=== PATIENT | female | born 1975 | race Caucasian/White ===

== ENCOUNTER 2018-07-01 23:59 | Emergency (ER) | payer BC, MEDICARE ==
[~2018-07-01] VITALS: Ht 170.1 cm; Wt 76.2 kg
--- NOTE | ~2018-07-01 | EKG ---
[place], [place] ELECTROCARDIOGRAM REPORT NAME: CHAO MARTIN UNIT #: [id number] ROOM: DOCTOR: EPIPHANY DRAFT REPORT BIRTHDATE: [birth year] [facility] Test Date: 2018-07-02 Test Time: 00:05:13 Pat Name: CHAO MARTIN Department: ER Room: 16 Gender: F Assistant Center Director: : 1975 Requested By: PALOMA HERNANDEZ Order Number: [id number] Reading MD: Munir Bundy MD Measurements Intervals [place] Rate: 148 P: 53 TX: 105 QRS: 30 QRSD: 86 T: 87 QT: 287 QTc: 451 Interpretive Statements Sinus tachycardia Probable left atrial enlargement LVH with secondary repolarization abnormality Baseline wander in lead(s) V3,V5,V6 Electronically Signed On 07-03-2018 9:16:04 PDT by Munir Bundy MD CM:EKGRPT:ELECTROCARDIOGRAM REPORT 0005 [id number] PALOMA HERNANDEZ MD EPIPHANY DRAFT REPORT PALOMA HERNANDEZ MD
[~2018-07-01 23:59] MED LIST: ATIVAN0.5 MG PO; BACTRIM DS 8001 TA1 PO; CEFUROXIME AXE250 MG PO; MOTRIN600 MG PO; Motrin,Rufen800 MG PO; NAPROSYN500 MG PO; PANTOPRAZOLE SO40 MG PO; PYRIDIUM200 M1 PO; SEPTRA DS 800 M1 TAB PO; TYLENOL W/CODEI1 TA2 PO; ZANTAC 300300 MG PO; ZOFRAN ODT4 MG SL
[2018-07-02 00:31] LABS: BASO # 0.1 10*3/uL (0.0-0.1); BASO % 0.6 % (0.0-1.0); EOS # 0.1 10*3/uL (0.0-0.4); EOS % 1.5 % (1.0-4.0); HEMOGLOBIN 12.5 g/dl (12.0-16.0); LYMPH # 4.2 10*3/uL (1.3-4.4); LYMPH % 44.8 % (27.0-41.0); MEAN CORPUSCULAR HGB CONC 32.9 g/dl (33.0-37.0); MEAN PLATELET VOLUME 9.3 fl (9.6-12.3); MONO # 0.8 10*3/uL (0.1-1.0); MONO % 8.3 % (3.0-9.0); NEUT # 4.1 10*3/uL (2.3-7.9); NEUT % 44.4 % (47.0-73.0); PLATELET COUNT AUTOMATED 297 10*3/uL (130-400); RED BLOOD COUNT 4.47 10*6/uL (4.10-5.10); RED CELL DISTRI WIDTH 14.6 % (0-14.5); WHITE BLOOD COUNT 9.3 10*3/uL (4.8-10.8)
[2018-07-02 00:41] LABS: ACT PARTIAL THROMBO TIME 24.2 SECONDS (20.8-31.5); INTERNATIONAL NORM RATIO 0.9 (2.0-3.5)
[2018-07-02 00:48] LABS: ALBUMIN 3.9 gm/dl (3.1-4.5); ALKALINE PHOSPHATASE 109 U/L (45-117); BUN 12 mg/dl (7-24); CHLORIDE 103 mmol/L (98-107); CREATININE 0.87 mg/dL (0.55-1.02); POTASSIUM 3.4 mmol/L (3.5-5.1); SGOT/AST 20 IU/L (3-35); SGPT/ALT 30 U/L (12-78); SODIUM 139 mmol/L (136-145); TOTAL PROTEIN 7.9 gm/dL (6.4-8.2)
[2018-07-02 00:50] LABS: TROPONIN I < 0.015 ng/ml (<0.045)
[2018-07-02 01:02] VITALS: BP 149/99
== END 2018-07-02 01:13 | disposition home or self-care (01) ==
LOC: ED 23:59
PROVIDERS: Emergency Medicine Emergency Medical Services
DX: F41.9 Anxiety disorder, unspecified (principal); R07.9 Chest pain, unspecified; F17.200 Nicotine dependence, unspecified, uncomplicated; Z98.51 Tubal ligation status

== ENCOUNTER 2018-07-09 17:47 | Emergency (ER) | payer BC, MEDICARE ==
[~2018-07-09] VITALS: Ht 170.1 cm; Wt 76.5 kg
--- NOTE | ~2018-07-09 | EKG ---
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
[2018-07-09 18:08] LABS: BASO % 0.5 % (0.0-1.0); EOS # 0.1 10*3/uL (0.0-0.4); HEMATOCRIT 37.7 % (37.0-47.0); HEMOGLOBIN 12.3 g/dl (12.0-16.0); LYMPH # 1.7 10*3/uL (1.3-4.4); MEAN CELL VOLUME 85.1 fl (81.0-99.0); MEAN CORPUSCULAR HGB 27.8 pg (27.0-31.0); MEAN CORPUSCULAR HGB CONC 32.6 g/dl (33.0-37.0); MEAN PLATELET VOLUME 9.3 fl (9.6-12.3); MONO # 0.6 10*3/uL (0.1-1.0); MONO % 9.8 % (3.0-9.0); NEUT # 3.7 10*3/uL (2.3-7.9); NEUT % 60.2 % (47.0-73.0); PLATELET COUNT AUTOMATED 316 10*3/uL (130-400); RED BLOOD COUNT 4.43 10*6/uL (4.10-5.10); RED CELL DISTRI WIDTH 14.3 % (0-14.5); WHITE BLOOD COUNT 6.1 10*3/uL (4.8-10.8)
[2018-07-09 18:18] LABS: ACT PARTIAL THROMBO TIME 24.7 SECONDS (20.8-31.5)
[2018-07-09 18:22] LABS: BILIRUBIN NEGATIVE (NEGATIVE); BLOOD NEGATIVE (NEGATIVE); CLARITY CLEAR (CLEAR); COLOR YELLOW (YELLOW); GLUCOSE NEGATIVE (NEGATIVE); KETONE TRACE (NEGATIVE); LEUKO ESTERASE NEGATIVE (NEGATIVE); NITRITE NEGATIVE (NEGATIVE); SPECIFIC GRAVITY 1.015 (1.005-1.030); UROBILINOGEN 0.2 E.U./dl (0.2-1.0)
[2018-07-09 18:27] LABS: ALBUMIN 3.3 gm/dl (3.1-4.5); ALKALINE PHOSPHATASE 86 U/L (45-117); BUN 17 mg/dl (7-24); CHLORIDE 105 mmol/L (98-107); CREATININE 0.82 mg/dL (0.55-1.02); LIPASE 115 U/L (73-393); POTASSIUM 3.7 mmol/L (3.5-5.1); SGOT/AST 19 IU/L (3-35); SGPT/ALT 31 U/L (12-78); SODIUM 141 mmol/L (136-145); TOTAL PROTEIN 7.2 gm/dL (6.4-8.2)
[2018-07-09 18:30] LABS: URINE AMPHETAMINES < 1000 (1000ng/ml); URINE BARBITURATES < 200 (200ng/ml); URINE BENZODIAZEPINES < 200 (200ng/ml); URINE CANNABINOIDS (THC) < 50 (50ng/ml); URINE COCAINE < 300 (300ng/ml); URINE METHADONE < 300 (300ng/ml); URINE OPIATES < 300 (300ng/ml)
[2018-07-09 18:35] LABS: ETHYL ALCOHOL < 3.0 mg/dl (<3)
[2018-07-09 18:35] LABS: URINE PHENCYCLIDINE < 25 (25ng/ml)
[2018-07-09 20:38] VITALS: BP 121/77
== END 2018-07-09 20:34 | disposition short-term general hospital (02) ==
LOC: ED 17:47
PROVIDERS: Emergency Medicine
DX: I21.4 Non-ST elevation (NSTEMI) myocardial infarction (principal); R94.31 Abnormal electrocardiogram [ECG] [EKG]; R07.9 Chest pain, unspecified; F41.9 Anxiety disorder, unspecified; F10.10 Alcohol abuse, uncomplicated

== ENCOUNTER 2018-08-28 01:44 | Emergency (ER) | payer BC, MEDICARE ==
[~2018-08-28] VITALS: Ht 170.1 cm; Wt 73.5 kg
[2018-08-28 01:46] VITALS: BP 117/66
[2018-08-28] MEDS ORDERED: BRILINTA90 M1 PO (01:51)
[2018-08-28] MEDS ORDERED: TOPROL XL25 MG PO (01:52)
[2018-08-28] MEDS ORDERED: ASPIRIN CHEWABL81 MG PO (01:52)
[2018-08-28] MEDS ORDERED: SERTRALINE HYDR50 MG PO (01:52)
[2018-08-28] MEDS ORDERED: ZESTRIL,PRINIVIL5 MG PO (01:52)
[2018-08-28] MEDS ORDERED: HYDROXYZINE HCL25 MG PO (01:53)
[2018-08-28 02:20] LABS: BASO % 0.2 % (0.0-1.0); EOS # 0.1 10*3/uL (0.0-0.4); EOS % 1.3 % (1.0-4.0); LYMPH # 2.5 10*3/uL (1.3-4.4); MEAN CELL VOLUME 86.6 fl (81.0-99.0); MEAN CORPUSCULAR HGB 27.9 pg (27.0-31.0); MEAN CORPUSCULAR HGB CONC 32.3 g/dl (33.0-37.0); MEAN PLATELET VOLUME 9.8 fl (9.6-12.3); MONO # 0.7 10*3/uL (0.1-1.0); MONO % 7.9 % (3.0-9.0); NEUT # 5.6 10*3/uL (2.3-7.9); NEUT % 62.4 % (47.0-73.0); PLATELET COUNT AUTOMATED 270 10*3/uL (130-400); RED BLOOD COUNT 3.58 10*6/uL (4.10-5.10); RED CELL DISTRI WIDTH 14.6 % (0-14.5)
[2018-08-28 02:33] LABS: BUN 21 mg/dl (7-24); CHLORIDE 106 mmol/L (98-107); CREATININE 0.97 mg/dL (0.55-1.02); POTASSIUM 3.8 mmol/L (3.5-5.1); SODIUM 138 mmol/L (136-145)
[2018-08-28] MEDS ORDERED: VIBRAMYCIN100 MG PO (03:38)
== END 2018-08-28 04:01 | disposition home or self-care (01) ==
LOC: ED 01:44
PROVIDERS: Emergency Medicine
DX: L73.9 Follicular disorder, unspecified (principal); Z79.899 Other long term (current) drug therapy; Z79.82 Long term (current) use of aspirin; Z95.5 Presence of coronary angioplasty implant and graft; Z98.51 Tubal ligation status

== ENCOUNTER 2018-11-25 14:37 | Emergency (ER) | payer BC, MEDICARE ==
[~2018-11-25] VITALS: Ht 170.1 cm; Wt 73.5 kg
[~2018-11-25 14:37] MED LIST changes: +ASPIRIN CHEWABL81 MG PO; +BRILINTA90 M1 PO; +HYDROXYZINE HCL25 MG PO; +SERTRALINE HYDR50 MG PO; +TOPROL XL25 MG PO; +VIBRAMYCIN100 MG PO; +ZESTRIL,PRINIVIL5 MG PO
[2018-11-25 14:39] VITALS: BP 115/40
== END 2018-11-25 16:36 | disposition home or self-care (01) ==
LOC: ED 14:37
DX: S60.222A Contusion of left hand, initial encounter (principal); Z79.899 Other long term (current) drug therapy; Z79.82 Long term (current) use of aspirin; W23.0XXA Caught, crushed, jammed, or pinched between moving objects, initial encounter; Y93.89 Activity, other specified; Y92.810 Car as the place of occurrence of the external cause; Y99.8 Other external cause status

== ENCOUNTER 2019-04-20 12:06 | Inpatient (IN) | payer BC ==
[~2019-04-20] VITALS: Ht 170.1 cm; Wt 71.4 kg
[2019-04-20] VITALS (10 sets, daily range): BP systolic 113–143; BP diastolic 62–84
--- NOTE | ~2019-04-20 | EKG ---
[place], [place] ELECTROCARDIOGRAM REPORT NAME: CHAO MARTIN UNIT #: [id number] ROOM: 405 DOCTOR: LI DRAFT REPORT BIRTHDATE: [birth year] [facility] Test Date: 2019-04-20 Test Time: 17:41:50 Pat Name: CHAO MARTIN Department: Room: 405 Gender: F Supervisor Estimator And Drafter: Alicia Hsieh : 1975 Requested By: SP ANAYA Order Number: [id number] Reading MD: Nilam Li Measurements Intervals [place] Rate: 84 P: 40 CO: 159 QRS: 17 QRSD: 84 T: 38 QT: 361 QTc: 427 Interpretive Statements Sinus rhythm Abnormal R-wave progression, early transition Compared to ECG 07/09/2018 17:53:42 No significant changes Electronically Signed On 04-21-2019 12:46:00 PDT by Nilam Li CM:EKGRPT:ELECTROCARDIOGRAM REPORT 1741 1246 SP JEFFERSON DRAFT REPORT SP ANAYA MD
--- NOTE | ~2019-04-20 | EKG ---
[place], [place] ELECTROCARDIOGRAM REPORT NAME: CHAO MARTIN UNIT #: [id number] ROOM: 405 DOCTOR: LI DRAFT REPORT BIRTHDATE: [birth year] [facility] Test Date: 2019-04-20 Test Time: 15:24:23 Pat Name: CHAO MARTIN Department: Room: 405 Gender: F Sack Department Supervisor: Alicia Hsieh : 1975 Requested By: SP ANAYA Order Number: [id number] Reading MD: Nilam Li Measurements Intervals [place] Rate: 90 P: 44 IA: 166 QRS: 17 QRSD: 81 T: 34 QT: 357 QTc: 437 Interpretive Statements Sinus rhythm Abnormal R-wave progression, early transition Compared to ECG 07/09/2018 17:53:42 No significant changes Electronically Signed On 04-21-2019 12:43:25 PDT by Nilam Li CM:EKGRPT:ELECTROCARDIOGRAM REPORT 1524 1243 SP JEFFERSON DRAFT REPORT SP ANAYA MD
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
--- NOTE | ~2019-04-20 | EKG ---
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
--- NOTE | ~2019-04-20 | O ---
[place], [place] OPERATIVE NOTE NAME: CHAO MARTIN UNIT #: [id number] ROOM: 405 DOCTOR: NISHA AUGUST MD BIRTHDATE: [birth year] DOS: 04/21/2019 GASTROENDOSCOPIC REPORT HISTORY OF PRESENT ILLNESS: A 43-year-old patient who has presented with chief complaint of not feeling well and was expressing with microcytic anemia and hemoglobin of 6. PROCEDURE: Today's procedure part of investigation is panendoscopy plus biopsy. PREMEDICATION: Propofol. SCOPE: Olympus gastroscope Q10 video. REPORT: After putting the patient in left lateral position and application of lubricant to the scope, the scope was introduced. Thereafter, under direct visualization, advanced through the length of esophagus without difficulty. Gastritis was noticed. No evidence of bleeding in the gastric pouch identified. Duodenal bulb, second and third part within normal limits. Antral biopsy obtained. GI reflexion of the scope reveals cardia to be benign. Air was suctioned out. The patient was extubated, tolerated the procedure well. IMPRESSION: Gastritis, status post biopsy. PLAN AND DISCUSSION: Retrospective further finding shows that the patient is relatively aggressive alcohol consumer and in addition, she has heavy menses for 3 days, chronically per month. In addition, the patient has been on antiplatelet aspirin product in addition to the anticoagulant, Brilinta and combination of all above contributors can lead to iron deficiency anemia. However, this patient requires to have a colonoscopy done as outpatient. This is going to be organized for her. At the present time, we are going to go ahead and feed her. [place], [place] OPERATIVE NOTE NAME: CHAO MARTIN UNIT #: [id number] ROOM: 405 DOCTOR: NISHA AUGUST MD BIRTHDATE: [birth year] NISHA AUGUST MD CM:OPRECORD:OPERATIVE NOTE 1741 1805 NISHA AUGUST MD 05/03/19 0752 interface
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
[2019-04-20 12:40] LABS: HEMATOCRIT 24.5 % (37.0-47.0); MEAN CELL VOLUME 63.8 fl (81.0-99.0); MEAN CORPUSCULAR HGB CONC 28.2 g/dl (33.0-37.0); MEAN PLATELET VOLUME 9.6 fl (9.6-12.3); PLATELET COUNT AUTOMATED 423 10*3/uL (130-400); RED BLOOD COUNT 3.84 10*6/uL (4.10-5.10); RED CELL DISTRI WIDTH 20.6 % (0-14.5); WHITE BLOOD COUNT 8.6 10*3/uL (4.8-10.8)
[2019-04-20 12:50] LABS: HEMOGLOBIN 6.9 g/dl (12.0-16.0)
[2019-04-20 12:56] LABS: ALBUMIN 3.6 gm/dl (3.1-4.5); ALKALINE PHOSPHATASE 68 U/L (45-117); BUN 10 mg/dl (7-24); CHLORIDE 111 mmol/L (98-107); CREATININE 0.79 mg/dL (0.55-1.02); POTASSIUM 3.9 mmol/L (3.5-5.1); SGOT/AST 10 IU/L (3-35); SGPT/ALT 17 U/L (12-78); SODIUM 142 mmol/L (136-145); TOTAL PROTEIN 7.5 gm/dL (6.4-8.2)
[2019-04-20 12:58] LABS: ACT PARTIAL THROMBO TIME 20.6 SECONDS (20.0-32.1); INTERNATIONAL NORM RATIO 0.9 (2.0-3.5)
[2019-04-20 12:59] LABS: TROPONIN I < 0.015 ng/ml (<0.045)
[2019-04-20 13:00] LABS: B-hCG (QUALITATIVE) NEGATIVE (NEGATIVE)
[2019-04-20 13:04] LABS: ETHYL ALCOHOL < 3.0 mg/dl (<3)
[2019-04-20 13:18] LABS: BASOPHILS 1 % (0-1); TOTAL CELLS COUNTED 100 #CELLS
[2019-04-20 13:19] LABS: OVALOCYTES FEW
[2019-04-20 13:20] LABS: PLATELET SUFFICIENCY NORMAL (NORMAL)
[2019-04-20 13:20] LABS: IRON 10 ug/dL (50-170); TOTAL IRON BINDING CAPACITY 435 ug/dl (250-450)
[2019-04-20 13:50] LABS: BILIRUBIN NEGATIVE (NEGATIVE); BLOOD TRACE-LYSED (NEGATIVE); CLARITY CLEAR (CLEAR); COLOR YELLOW (YELLOW); GLUCOSE NEGATIVE (NEGATIVE); KETONE NEGATIVE (NEGATIVE); LEUKO ESTERASE 2+ (NEGATIVE); NITRITE NEGATIVE (NEGATIVE); PH 6.5 (5.0-9.0); SPECIFIC GRAVITY 1.015 (1.005-1.030); UROBILINOGEN 0.2 E.U./dl (0.2-1.0)
[2019-04-20 13:58] LABS: URINE AMPHETAMINES < 1000 (1000ng/ml); URINE BARBITURATES < 200 (200ng/ml); URINE BENZODIAZEPINES < 200 (200ng/ml); URINE CANNABINOIDS (THC) < 50 (50ng/ml); URINE COCAINE < 300 (300ng/ml); URINE METHADONE < 300 (300ng/ml); URINE OPIATES < 300 (300ng/ml)
[2019-04-20 14:00] LABS: BACTERIA TRACE; WBC 21-30 wbc/hpf (0-5)
[2019-04-20 14:03] LABS: URINE PHENCYCLIDINE < 25 (25ng/ml)
[2019-04-20] MEDS ORDERED: COREG6.25 MG PO (14:31)
[2019-04-20] MEDS ORDERED: PROTONIX40 MG PO (14:32)
[2019-04-20] MEDS ORDERED: NITROSTAT0.4 MG SL (14:33)
[2019-04-21] VITALS (13 sets, daily range): BP systolic 91–127; BP diastolic 45–76
[2019-04-21 06:27] LABS: BASO % 0.3 % (0.0-1.0); EOS # 0.1 10*3/uL (0.0-0.4); EOS % 0.8 % (1.0-4.0); HEMATOCRIT 25.3 % (37.0-47.0); HEMOGLOBIN 7.4 g/dl (12.0-16.0); LYMPH % 18.4 % (27.0-41.0); MEAN CELL VOLUME 66.4 fl (81.0-99.0); MEAN CORPUSCULAR HGB 19.4 pg (27.0-31.0); MEAN CORPUSCULAR HGB CONC 29.2 g/dl (33.0-37.0); MEAN PLATELET VOLUME 9.8 fl (9.6-12.3); MONO # 0.7 10*3/uL (0.1-1.0); NEUT # 8.1 10*3/uL (2.3-7.9); NEUT % 74.1 % (47.0-73.0); PLATELET COUNT AUTOMATED 380 10*3/uL (130-400); RED BLOOD COUNT 3.81 10*6/uL (4.10-5.10); RED CELL DISTRI WIDTH 23.6 % (0-14.5)
[2019-04-21 06:52] LABS: BUN 15 mg/dl (7-24); CHLORIDE 107 mmol/L (98-107); CHOLESTEROL 126 mg/dL (<200); CREATININE 0.73 mg/dL (0.55-1.02); HDL CHOLESTEROL 42 mg/dl (40-60); LDL CHOLESTEROL 59 mg/dL (9-159); POTASSIUM 3.5 mmol/L (3.5-5.1); SODIUM 137 mmol/L (136-145); TRIGLYCERIDES 124 mg/dl (<150); VLDL CHOLESTEROL 25 mg/dL (6-40)
[2019-04-21 07:00] LABS: INTERNATIONAL NORM RATIO 0.9 (2.0-3.5)
[2019-04-21 07:12] LABS: VITAMIN D, 25-HYDROXY 19.9 ng/mL (30-100)
[2019-04-21] MEDS ORDERED: FERRLECIT62.5 MG/1 IV (10:52)
[2019-04-22] VITALS: BP 94/50
[2019-04-22 08:00] VITALS: BP 106/60
== END 2019-04-22 10:39 | disposition home or self-care (01) | DRG 761 ==
LOC: ED 12:06 → 4E 13:47 → EDHOLD 13:47 → 4E 13:48
PROVIDERS: Emergency Medicine; Internal Medicine; ADMIT Internal Medicine
PROC: 30233N1 Transfusion of Nonautologous Red Blood Cells into Peripheral Vein, Percutaneous Approach (ICD-10-PCS; principal; 2019-04-20)
PROC: 0DB68ZX Excision of Stomach, Via Natural or Artificial Opening Endoscopic, Diagnostic (ICD-10-PCS; 2019-04-21)
DX: N92.0 Excessive and frequent menstruation with regular cycle (principal); D50.9 Iron deficiency anemia, unspecified; D47.3 Essential (hemorrhagic) thrombocythemia; R00.0 Tachycardia, unspecified; I10 Essential (primary) hypertension; F41.9 Anxiety disorder, unspecified; I25.10 Atherosclerotic heart disease of native coronary artery without angina pectoris; K29.70 Gastritis, unspecified, without bleeding; Z87.440 Personal history of urinary (tract) infections; Z87.828 Personal history of other (healed) physical injury and trauma; Z95.5 Presence of coronary angioplasty implant and graft; Z98.51 Tubal ligation status; I25.2 Old myocardial infarction; Z79.82 Long term (current) use of aspirin; Z79.899 Other long term (current) drug therapy; Z83.79 Family history of other diseases of the digestive system; Z82.49 Family history of ischemic heart disease and other diseases of the circulatory system

== ENCOUNTER 2019-09-01 02:55 | Emergency (ER) | payer BC ==
[~2019-09-01] VITALS: Ht 175.2 cm; Wt 72.6 kg
[~2019-09-01 02:55] MED LIST changes: +COREG6.25 MG PO; +FERRLECIT62.5 MG/1 IV; +NITROSTAT0.4 MG SL; +PROTONIX40 MG PO
[2019-09-01 02:57] VITALS: BP 132/99
[2019-09-01] MEDS ORDERED: CEPHALEXIN500 M1 PO (05:21)
== END 2019-09-01 05:25 | disposition home or self-care (01) ==
LOC: ED 02:55
DX: S00.81XA Abrasion of other part of head, initial encounter (principal); I25.10 Atherosclerotic heart disease of native coronary artery without angina pectoris; I10 Essential (primary) hypertension; I25.2 Old myocardial infarction; Z79.899 Other long term (current) drug therapy; W19.XXXA Unspecified fall, initial encounter; Y93.89 Activity, other specified; Y92.89 Other specified places as the place of occurrence of the external cause; Y99.8 Other external cause status

== ENCOUNTER → 2019-11-13 | Outpatient (CLI) | payer BC, MEDICARE ==
[~2019-11-13] MED LIST changes: +CEPHALEXIN500 M1 PO
[2019-11-13 13:42] LABS: HEMATOCRIT 37.7 % (37.0-47.0); HEMOGLOBIN 12.1 g/dl (12.0-16.0); MEAN CELL VOLUME 89.1 fl (81.0-99.0); MEAN CORPUSCULAR HGB 28.6 pg (27.0-31.0); MEAN CORPUSCULAR HGB CONC 32.1 g/dl (33.0-37.0); MEAN PLATELET VOLUME 9.3 fl (9.6-12.3); RED BLOOD COUNT 4.23 10*6/uL (4.10-5.10); RED CELL DISTRI WIDTH 13.4 % (0-14.5); WHITE BLOOD COUNT 5.8 10*3/uL (4.8-10.8)
[2019-11-13 14:11] LABS: ALBUMIN 3.6 gm/dl (3.1-4.5); ALKALINE PHOSPHATASE 73 U/L (45-117); BUN 13 mg/dl (7-24); CHLORIDE 105 mmol/L (98-107); CHOLESTEROL 158 mg/dL (<200); CREATININE 0.81 mg/dL (0.55-1.02); HDL CHOLESTEROL 72 mg/dl (40-60); LDL CHOLESTEROL 67 mg/dL (9-159); POTASSIUM 4.1 mmol/L (3.5-5.1); SGOT/AST 23 IU/L (3-35); SGPT/ALT 41 U/L (12-78); SODIUM 137 mmol/L (136-145); TOTAL PROTEIN 7.2 gm/dL (6.4-8.2); TRIGLYCERIDES 95 mg/dl (<150); VLDL CHOLESTEROL 19 mg/dL (6-40)
[2019-11-13 14:54] LABS: VITAMIN D, 25-HYDROXY 10.8 ng/mL (30-100)
== END ==
LOC: LAB 12:57 → EDSTATUS 12:59 → LAB 12:59
PROVIDERS: Family Medicine
DX: I10 Essential (primary) hypertension (principal); E78.00 Pure hypercholesterolemia, unspecified; E53.8 Deficiency of other specified B group vitamins; Z79.899 Other long term (current) drug therapy

== ENCOUNTER → 2019-12-25 | Outpatient (CLI) | payer BC, MEDICARE | END | disposition home or self-care (01) | LOC: CARD 12-13 00:58 | DX: I34.1 Nonrheumatic mitral (valve) prolapse (principal) ==

== ENCOUNTER → 2020-04-16 | Outpatient (CLI) | payer BC, MEDICARE | END | disposition home or self-care (01) | LOC: RAD 15:01 | DX: R06.02 Shortness of breath (principal); R05 Cough ==

== ENCOUNTER → 2020-07-26 | Outpatient (CLI) | payer BC, MEDICARE ==
[2020-07-26 10:06] LABS: HEMATOCRIT 37.1 % (37.0-47.0); MEAN CELL VOLUME 87.1 fl (81.0-99.0); MEAN PLATELET VOLUME 9.4 fl (9.6-12.3); RED BLOOD COUNT 4.26 10*6/uL (4.10-5.10); RED CELL DISTRI WIDTH 14.2 % (0-14.5); WHITE BLOOD COUNT 6.6 10*3/uL (4.8-10.8)
[2020-07-26 10:37] LABS: ALBUMIN 3.5 gm/dl (3.1-4.5); BUN 12 mg/dl (7-24); CHLORIDE 107 mmol/L (98-107); POTASSIUM 3.9 mmol/L (3.5-5.1); SODIUM 140 mmol/L (136-145)
[2020-07-26 10:40] LABS: ALKALINE PHOSPHATASE 80 U/L (45-117); CHOLESTEROL 116 mg/dL (<200); CREATININE 0.73 mg/dL (0.55-1.02); HDL CHOLESTEROL 65 mg/dl (40-60); LDL CHOLESTEROL 36 mg/dL (9-159); SGOT/AST 15 IU/L (3-35); SGPT/ALT 24 U/L (12-78); TOTAL PROTEIN 7.4 gm/dL (6.4-8.2); TRIGLYCERIDES 73 mg/dl (<150); VLDL CHOLESTEROL 15 mg/dL (6-40)
[2020-07-27 06:08] LABS: HEP B CORE AB, IGM Negative (Negative); HEPATITIS B SURFACE AG Negative (Negative); HEPATITIS C VIRUS ANTIBODY <0.1 s/co (0.0-0.9)
== END | disposition home or self-care (01) ==
LOC: LAB 09:45
PROVIDERS: ATTEND Nurse Practitioner Family
DX: E55.9 Vitamin D deficiency, unspecified (principal); R53.83 Other fatigue; F10.10 Alcohol abuse, uncomplicated

== ENCOUNTER → 2020-08-16 | Outpatient (CLI) | payer BC, MEDICARE | END | disposition home or self-care (01) | LOC: COVID19 15:40 | PROVIDERS: ATTEND Family Medicine | DX: Z20.828 Contact with and (suspected) exposure to other viral communicable diseases (principal) ==

== ENCOUNTER → 2020-12-02 | Outpatient (CLI) | payer BC, MEDICARE | END | disposition home or self-care (01) | LOC: RAD 17:47 | PROVIDERS: ATTEND Nurse Practitioner Family | DX: K59.00 Constipation, unspecified (principal) ==

== ENCOUNTER → 2020-12-05 | Outpatient (CLI) | payer BC, MEDICARE ==
[2020-12-05 11:10] LABS: HEMATOCRIT 39.7 % (37.0-47.0); MEAN CELL VOLUME 85.9 fl (81.0-99.0); MEAN CORPUSCULAR HGB 27.3 pg (27.0-31.0); MEAN CORPUSCULAR HGB CONC 31.7 g/dl (33.0-37.0); MEAN PLATELET VOLUME 9.6 fl (9.6-12.3); RED BLOOD COUNT 4.62 10*6/uL (4.10-5.10); RED CELL DISTRI WIDTH 14.2 % (0-14.5); WHITE BLOOD COUNT 6.2 10*3/uL (4.8-10.8)
[2020-12-05 11:41] LABS: ALBUMIN 3.5 gm/dl (3.1-4.5); BUN 14 mg/dl (7-24); CHLORIDE 104 mmol/L (98-107); CHOLESTEROL 136 mg/dL (<200); GAMMA GLUTAMYL TRANSPEPTIDASE 18 U/L (5-55); POTASSIUM 3.9 mmol/L (3.5-5.1); SGOT/AST 13 IU/L (3-35); SGPT/ALT 27 U/L (12-78); SODIUM 137 mmol/L (136-145); TOTAL PROTEIN 7.8 gm/dL (6.4-8.2); TRIGLYCERIDES 142 mg/dl (<150); VLDL CHOLESTEROL 28 mg/dL (6-40)
[2020-12-05 11:42] LABS: ALKALINE PHOSPHATASE 93 U/L (45-117); HDL CHOLESTEROL 51 mg/dl (40-60); LDL CHOLESTEROL 57 mg/dL (9-159); VITAMIN D, 25-HYDROXY 39.9 ng/mL (30-100)
== END | disposition home or self-care (01) ==
LOC: LAB 10:56
PROVIDERS: ATTEND Family Medicine
DX: I10 Essential (primary) hypertension (principal); E55.9 Vitamin D deficiency, unspecified; K59.00 Constipation, unspecified; F41.1 Generalized anxiety disorder; E74.00 Glycogen storage disease, unspecified

== ENCOUNTER 2022-11-21 17:36 | Emergency (ER) | payer MEDICARE ==
[~2022-11-21] VITALS: Ht 170.1 cm; Wt 80.3 kg
[2022-11-21 18:25] LABS: BASO # 0.1 10*3/uL (0.0-0.1); BASO % 0.8 % (0.0-1.0); EOS # 0.1 10*3/uL (0.0-0.4); HEMATOCRIT 34.4 % (37.0-47.0); LYMPH # 2.2 10*3/uL (1.3-4.4); LYMPH % 34.2 % (27.0-41.0); MEAN CELL VOLUME 74.3 fl (81.0-99.0); MEAN CORPUSCULAR HGB 23.5 pg (27.0-31.0); MEAN CORPUSCULAR HGB CONC 31.7 g/dl (33.0-37.0); MEAN PLATELET VOLUME 9.1 fl (9.6-12.3); MONO # 0.4 10*3/uL (0.1-1.0); MONO % 6.8 % (3.0-9.0); NEUT # 3.6 10*3/uL (2.3-7.9); NEUT % 56.9 % (47.0-73.0); PLATELET COUNT AUTOMATED 447 10*3/uL (130-400); RED BLOOD COUNT 4.63 10*6/uL (4.10-5.10); RED CELL DISTRI WIDTH 18.6 % (0-14.5); WHITE BLOOD COUNT 6.3 10*3/uL (4.8-10.8)
[2022-11-21 18:58] LABS: ALKALINE PHOSPHATASE 97 U/L (46-116); BUN 9 mg/dl (9-23); CHLORIDE 104 mmol/L (98-107); POTASSIUM 3.2 mmol/L (3.4-5.1); SGPT/ALT 29 U/L (10-49); TOTAL PROTEIN 7.6 gm/dL (6.0-8.0)
[2022-11-21 19:02] LABS: BILIRUBIN Negative (Negative); BLOOD 3+ (Negative); CLARITY Clear (Clear); COLOR Yellow (Yellow); GLUCOSE Negative (Negative); KETONE Negative (Negative); LEUKO ESTERASE Negative (Negative); NITRITE Negative (Negative); PH 5.5 (4.5-8.0); SPECIFIC GRAVITY 1.015 (1.001-1.030)
[2022-11-21 19:15] LABS: URINE AMPHETAMINES Negative (1000ng/ml); URINE BARBITURATES Negative (200ng/ml); URINE BENZODIAZEPINES Negative (200ng/ml); URINE CANNABINOIDS (THC) Negative (50ng/ml); URINE COCAINE Negative (300ng/ml); URINE METHADONE Negative (300ng/ml); URINE OPIATES Negative (300ng/ml); URINE PHENCYCLIDINE Negative (25ng/ml)
[2022-11-21 19:18] LABS: BACTERIA 1+; MUCOUS 1+; RBC TNTC rbc/hpf (0-2)
[2022-11-21 20:07] VITALS: BP 119/73
== END 2022-11-21 21:32 | disposition home or self-care (01) ==
LOC: ED 17:36
PROVIDERS: Internal Medicine
DX: F10.129 Alcohol abuse with intoxication, unspecified (principal); E87.6 Hypokalemia; D50.9 Iron deficiency anemia, unspecified; Z98.51 Tubal ligation status; Z98.890 Other specified postprocedural states; Z79.899 Other long term (current) drug therapy

== ENCOUNTER → 2022-12-28 | Outpatient (CLI) | payer OTHER, MEDICARE ==
[2022-12-28 13:41] LABS: MEAN CELL VOLUME 77.6 fl (81.0-99.0); MEAN CORPUSCULAR HGB 23.3 pg (27.0-31.0); MEAN PLATELET VOLUME 9.1 fl (9.6-12.3); RED BLOOD COUNT 4.25 10*6/uL (4.10-5.10); RED CELL DISTRI WIDTH 20.4 % (0-14.5); WHITE BLOOD COUNT 11.4 10*3/uL (4.8-10.8)
[2022-12-28 14:27] LABS: ALKALINE PHOSPHATASE 92 U/L (46-116); BUN 7 mg/dl (9-23); CHLORIDE 102 mmol/L (98-107); CHOLESTEROL 122 mg/dL (<200); FREE T4 1.03 ng/dl (0.89-1.76); GAMMA GLUTAMYL TRANSPEPTIDASE 36 U/L (0-73); LDL CHOLESTEROL 41 mg/dL (9-159); POTASSIUM 4.1 mmol/L (3.4-5.1); SGPT/ALT 13 U/L (10-49); THYROID STIM HORMONE (HS) 1.376 uIU/ml (0.550-4.780); TOTAL PROTEIN 7.1 gm/dL (6.0-8.0); TRIGLYCERIDES 111 mg/dl (<150)
[2022-12-28 14:28] LABS: VITAMIN D, 25-HYDROXY 53.3 ng/mL (30-100)
== END ==
LOC: LAB 12:57
PROVIDERS: ATTEND Family Medicine
DX: I25.10 Atherosclerotic heart disease of native coronary artery without angina pectoris (principal); I10 Essential (primary) hypertension; E74.00 Glycogen storage disease, unspecified; F41.1 Generalized anxiety disorder; R07.9 Chest pain, unspecified; R06.02 Shortness of breath

== ENCOUNTER 2023-04-11 09:34 | Emergency (ER) | payer MEDICARE, BC ==
[~2023-04-11] VITALS: Ht 170.1 cm; Wt 74.4 kg
[2023-04-11 09:52] VITALS: BP 147/96
[2023-04-11] MEDS ORDERED: ATORVASTATIN CA40 M1 PO (09:53)
[2023-04-11] MEDS ORDERED: ASPIRIN81 M1 PO (09:54)
[2023-04-11 10:10] LABS: BILIRUBIN Negative (Negative); BLOOD 1+ (Negative); CLARITY Clear (Clear); COLOR Yellow (Yellow); GLUCOSE Negative (Negative); KETONE Negative (Negative); LEUKO ESTERASE 3+ (Negative); NITRITE Negative (Negative); PH 6.5 (4.5-8.0); SPECIFIC GRAVITY <= 1.005 (1.001-1.030); UROBILINOGEN 0.2 E.U./dl (0.0-1.0)
[2023-04-11 10:22] LABS: BACTERIA 1+; WBC 51-100 wbc/hpf (0-5)
[2023-04-11 10:26] LABS: BASO % 0.5 % (0.0-1.0); EOS # 0.2 10*3/uL (0.0-0.4); EOS % 1.9 % (1.0-4.0); HEMATOCRIT 30.4 % (37.0-47.0); LYMPH # 1.4 10*3/uL (1.3-4.4); LYMPH % 16.4 % (27.0-41.0); MEAN CELL VOLUME 77.4 fl (81.0-99.0); MEAN CORPUSCULAR HGB 23.7 pg (27.0-31.0); MEAN CORPUSCULAR HGB CONC 30.6 g/dl (33.0-37.0); MEAN PLATELET VOLUME 9.4 fl (9.6-12.3); MONO # 0.7 10*3/uL (0.1-1.0); MONO % 7.7 % (3.0-9.0); NEUT # 6.3 10*3/uL (2.3-7.9); NEUT % 73.2 % (47.0-73.0); PLATELET COUNT AUTOMATED 328 10*3/uL (130-400); RED BLOOD COUNT 3.93 10*6/uL (4.10-5.10); RED CELL DISTRI WIDTH 19.1 % (0-14.5); WHITE BLOOD COUNT 8.6 10*3/uL (4.8-10.8)
[2023-04-11 10:48] LABS: ALKALINE PHOSPHATASE 83 U/L (46-116); BUN 9 mg/dl (9-23); CHLORIDE 107 mmol/L (98-107); LIPASE 38 U/L (12-53); POTASSIUM 3.4 mmol/L (3.4-5.1); SGPT/ALT 16 U/L (10-49); TOTAL PROTEIN 6.7 gm/dL (6.0-8.0)
[2023-04-11] MEDS ORDERED: CIPRO500 MG PO (11:04)
== END 2023-04-11 11:17 | disposition home or self-care (01) ==
LOC: ED 09:34
PROVIDERS: Internal Medicine
DX: N39.0 Urinary tract infection, site not specified (principal); F41.9 Anxiety disorder, unspecified; D64.9 Anemia, unspecified; Z98.51 Tubal ligation status; Z98.890 Other specified postprocedural states

== ENCOUNTER → 2023-05-20 | Outpatient (CLI) | payer MEDICARE, BC ==
[~2023-05-20] MED LIST changes: +ASPIRIN81 M1 PO; +ATORVASTATIN CA40 M1 PO; +CIPRO500 MG PO
[2023-05-20 14:12] LABS: HEMATOCRIT 33.6 % (37.0-47.0); MEAN CORPUSCULAR HGB 22.5 pg (27.0-31.0); MEAN CORPUSCULAR HGB CONC 30.1 g/dl (33.0-37.0); MEAN PLATELET VOLUME 9.3 fl (9.6-12.3); RED BLOOD COUNT 4.48 10*6/uL (4.10-5.10); RED CELL DISTRI WIDTH 19.4 % (0-14.5); WHITE BLOOD COUNT 9.7 10*3/uL (4.8-10.8)
[2023-05-20 14:36] LABS: ALKALINE PHOSPHATASE 93 U/L (46-116); BUN 11 mg/dl (9-23); CHLORIDE 102 mmol/L (98-107); POTASSIUM 3.7 mmol/L (3.4-5.1); SGPT/ALT 16 U/L (10-49); TOTAL PROTEIN 7.5 gm/dL (6.0-8.0)
== END | disposition home or self-care (01) ==
LOC: LAB 13:39
PROVIDERS: ATTEND Family Medicine
DX: S70.361A Insect bite (nonvenomous), right thigh, initial encounter (principal); L03.115 Cellulitis of right lower limb; W57.XXXA Bitten or stung by nonvenomous insect and other nonvenomous arthropods, initial encounter; Y93.89 Activity, other specified; Y92.89 Other specified places as the place of occurrence of the external cause; Y99.8 Other external cause status

== ENCOUNTER → 2024-01-08 | Outpatient (CLI) | payer BC, MEDICARE ==
[~2024-01-08] MED LIST changes: +VITAMIN D350 MCG PO
[2024-01-08 10:46] LABS: HEMATOCRIT 33.9 % (37.0-47.0); MEAN CELL VOLUME 74.3 fl (81.0-99.0); MEAN CORPUSCULAR HGB 21.7 pg (27.0-31.0); MEAN CORPUSCULAR HGB CONC 29.2 g/dl (33.0-37.0); MEAN PLATELET VOLUME 9.4 fl (9.6-12.3); RED BLOOD COUNT 4.56 10*6/uL (4.10-5.10); RED CELL DISTRI WIDTH 20.2 % (0-14.5); WHITE BLOOD COUNT 5.4 10*3/uL (4.8-10.8)
[2024-01-08 11:11] LABS: ALKALINE PHOSPHATASE 81 U/L (46-116); BUN 14 mg/dl (9-23); CHLORIDE 107 mmol/L (98-107); CHOLESTEROL 156 mg/dL (<200); CPK 67 U/L (34-171); GAMMA GLUTAMYL TRANSPEPTIDASE 38 U/L (0-73); LDL CHOLESTEROL 56 mg/dL (9-159); POTASSIUM 4.1 mmol/L (3.4-5.1); SGPT/ALT 17 U/L (5-49); TOTAL PROTEIN 7.2 gm/dL (6.0-8.0); TRIGLYCERIDES 163 mg/dl (<150)
== END | disposition home or self-care (01) ==
LOC: LAB 10:29
PROVIDERS: ATTEND Family Medicine
DX: I10 Essential (primary) hypertension (principal); E78.00 Pure hypercholesterolemia, unspecified; E55.9 Vitamin D deficiency, unspecified; L30.9 Dermatitis, unspecified; F41.1 Generalized anxiety disorder; E74.00 Glycogen storage disease, unspecified

== ENCOUNTER 2024-05-08 15:15 | Emergency (ER) | payer BC, MEDICARE ==
[~2024-05-08] VITALS: Ht 170.1 cm; Wt 76.2 kg
[2024-05-08 15:21] VITALS: BP 145/89
[2024-05-08] MEDS ORDERED: ATIVAN0.5 MG PO (15:22)
[2024-05-08] MEDS ORDERED: PREDNISONE20 M1 PO (15:49)
[2024-05-08] MEDS ORDERED: Dexamethasone Sodium Phospha 20 MG/5 ML VIAL IM ONE (15:50)
[2024-05-08] MEDS ORDERED: diphenhydrAMINE hydrochloride 50 MG/ML VIAL IM ONE (15:50)
== END 2024-05-08 16:08 | disposition home or self-care (01) ==
LOC: ED 15:15
DX: L25.9 Unspecified contact dermatitis, unspecified cause (principal); R21 Rash and other nonspecific skin eruption; F41.9 Anxiety disorder, unspecified; D64.9 Anemia, unspecified; I25.2 Old myocardial infarction; F10.10 Alcohol abuse, uncomplicated; Z98.890 Other specified postprocedural states; Z98.51 Tubal ligation status; Z95.5 Presence of coronary angioplasty implant and graft

== ENCOUNTER 2024-05-17 04:57 | Emergency (ER) | payer BC, MEDICARE ==
[~2024-05-17] VITALS: Ht 170.1 cm; Wt 65.8 kg
[~2024-05-17 04:57] MED LIST changes: +PREDNISONE20 M1 PO
[2024-05-17 05:08] VITALS: BP 132/80
[2024-05-17 05:23] LABS: BILIRUBIN 1+ (Negative); BLOOD 1+ (Negative); CLARITY Turbid (Clear); COLOR Dark Yellow (Yellow); GLUCOSE Negative (Negative); KETONE Trace (Negative); LEUKO ESTERASE 3+ (Negative); NITRITE Positive (Negative)
[2024-05-17 05:30] LABS: BACTERIA 4+; RBC 16-20 rbc/hpf (0-2); WBC 41-50 wbc/hpf (0-5)
[2024-05-17] MEDS ORDERED: Ciprofloxacin Hydrochloride 500 MG TAB PO ONE (05:40)
[2024-05-17] MEDS ORDERED: CIPRO500 MG PO (05:40)
[2024-05-18] MEDS ORDERED: PREDNISONE20 M1 PO (08:49)
[2024-05-18] MEDS ORDERED: METHOCARBAMOL750 M1 PO (08:49)
== END 2024-05-17 05:43 | disposition home or self-care (01) ==
LOC: ED 04:57
PROVIDERS: Internal Medicine
DX: N39.0 Urinary tract infection, site not specified (principal); F41.9 Anxiety disorder, unspecified; D64.9 Anemia, unspecified; F10.10 Alcohol abuse, uncomplicated; Z98.51 Tubal ligation status; Z98.890 Other specified postprocedural states; Z95.5 Presence of coronary angioplasty implant and graft

== ENCOUNTER 2024-05-18 05:06 | Emergency (ER) | payer BC, MEDICARE ==
[~2024-05-18] VITALS: Ht 170.1 cm; Wt 76.7 kg
[2024-05-18 05:16] VITALS: BP 129/91
[2024-05-18 06:06] LABS: HEMATOCRIT 35.1 % (37.0-47.0); MEAN CORPUSCULAR HGB 23.3 pg (27.0-31.0); MEAN CORPUSCULAR HGB CONC 29.9 g/dl (33.0-37.0); MEAN PLATELET VOLUME 9.2 fl (9.6-12.3); PLATELET COUNT AUTOMATED 417 10*3/uL (130-400); RED CELL DISTRI WIDTH 19.8 % (0-14.5); WHITE BLOOD COUNT 10.8 10*3/uL (4.8-10.8)
[2024-05-18 06:08] LABS: MANUAL DIFF REFLEX YES
[2024-05-18] MEDS ORDERED: Dexamethasone Sodium Phospha 20 MG/5 ML VIAL IV ONE (06:30)
[2024-05-18 06:34] LABS: BUN 12 mg/dl (9-23); CHLORIDE 103 mmol/L (98-107); CPK 49 U/L (34-171); POTASSIUM 4.2 mmol/L (3.4-5.1)
[2024-05-18 06:41] LABS: BASOPHILS 3 % (0-1); PLATELET SUFFICIENCY HIGH (NORMAL); TOTAL CELLS COUNTED 100 #CELLS
[2024-05-18] MEDS ORDERED: Thiamine 200 MG/2 ML VIAL IV ONE (06:50)
[2024-05-18] MEDS ORDERED: SODIUM CHLORIDE 0.9% 1,000 ML IV ONE (06:50)
[2024-05-18] MEDS ORDERED: Ketorolac Tromethamine 30 MG/ML VIAL IV ONE (07:55)
[2024-05-18] MEDS ORDERED: PREDNISONE20 M1 PO (08:49)
[2024-05-18] MEDS ORDERED: METHOCARBAMOL750 M1 PO (08:49)
== END 2024-05-18 09:42 | disposition home or self-care (01) ==
LOC: ED 05:06
PROVIDERS: Internal Medicine
DX: M79.604 Pain in right leg (principal); M79.605 Pain in left leg; F41.9 Anxiety disorder, unspecified; I25.2 Old myocardial infarction; D64.9 Anemia, unspecified; F10.20 Alcohol dependence, uncomplicated; Z98.51 Tubal ligation status; Z98.890 Other specified postprocedural states

== ENCOUNTER 2024-12-04 07:27 | Emergency (ER) | payer MEDICARE ==
[~2024-12-04] VITALS: Ht 170.1 cm; Wt 81.6 kg
[~2024-12-04 07:27] MED LIST changes: +METHOCARBAMOL750 M1 PO
[2024-12-04 07:39] VITALS: BP 133/114
[2024-12-04] MEDS ORDERED: Thiamine 200 MG/2 ML VIAL IV ONE (08:00)
[2024-12-04] MEDS ORDERED: FOLIC ACID 1 MG TAB PO ONE (08:00)
[2024-12-04] MEDS ORDERED: fentaNYL CITRATE 100 MCG/2 ML VIAL IV ONE (08:00)
[2024-12-04] MEDS ORDERED: SODIUM CHLORIDE 0.9% 500 ML IV ONE (08:00)
[2024-12-04] MEDS ORDERED: MELOXICAM15 MG PO (09:24)
== END 2024-12-04 09:32 | disposition home or self-care (01) ==
LOC: ED 07:27
DX: S93.402A Sprain of unspecified ligament of left ankle, initial encounter (principal); F41.9 Anxiety disorder, unspecified; D64.9 Anemia, unspecified; F10.10 Alcohol abuse, uncomplicated; Z98.51 Tubal ligation status; Z98.890 Other specified postprocedural states; W19.XXXA Unspecified fall, initial encounter; Y93.89 Activity, other specified; Y92.89 Other specified places as the place of occurrence of the external cause; Y99.8 Other external cause status

== ENCOUNTER 2025-04-08 22:01 | Emergency (ER) | payer BC, MEDICARE ==
[~2025-04-08 22:01] MED LIST changes: +MELOXICAM15 MG PO
== END 2025-04-08 22:30 | disposition left against medical advice (07) ==
LOC: ED 22:01
DX: S09.90XA Unspecified injury of head, initial encounter (principal); F10.10 Alcohol abuse, uncomplicated; Z79.899 Other long term (current) drug therapy; Z79.82 Long term (current) use of aspirin; Z98.890 Other specified postprocedural states; Z95.5 Presence of coronary angioplasty implant and graft; Y90.9 Presence of alcohol in blood, level not specified; X58.XXXA Exposure to other specified factors, initial encounter; Y93.89 Activity, other specified; Y92.89 Other specified places as the place of occurrence of the external cause; Y99.8 Other external cause status

== ENCOUNTER → 2025-05-09 | Outpatient (CLI) | payer BC, MEDICARE ==
[2025-05-09 13:21] LABS: MEAN CELL VOLUME 77.2 fl (81.0-99.0); MEAN CORPUSCULAR HGB 23.4 pg (27.0-31.0); MEAN PLATELET VOLUME 9.3 fl (9.6-12.3); NUCLEATED RED BLOOD CELL 0.0 % (0.0-0.0); NUCLEATED RED BLOOD CELL 0.0 10*3/uL (0.0-0.0); PLATELET COUNT AUTOMATED 332.0 10*3/uL (130-400); RED CELL DISTRI WIDTH 20.9 % (0-14.5)
[2025-05-09 13:59] LABS: BUN 11 mg/dl (9-23); CPK 64 U/L (34-171); FREE T4 1.10 ng/dl (0.89-1.76); GAMMA GLUTAMYL TRANSFERASE 24 U/L (0-38); LDL CHOLESTEROL 96 mg/dL (9-159); SGPT/ALT 19 U/L (5-49)
[2025-05-09 16:13] LABS: VITAMIN D, 25-HYDROXY 35.1 ng/mL (30-100)
== END | disposition home or self-care (01) ==
LOC: LAB 12:58
PROVIDERS: ATTEND Family Medicine
DX: I10 Essential (primary) hypertension (principal); K21.9 Gastro-esophageal reflux disease without esophagitis; E55.9 Vitamin D deficiency, unspecified; R53.83 Other fatigue; E78.5 Hyperlipidemia, unspecified